=== PATIENT | male | born 1935 | race Asian ===

== ENCOUNTER → 2017-02-18 | Outpatient (CLI) | payer MEDICARE, MEDICAID ==
[~2017-02-18] MED LIST: ACET-1757 PO; AMIO400T4 PO; AMLO5TAB4 PO; FURO-93 PO; INDO25CA PO; LOSA25TA5 PO; METF500T4 PO; OMEP20CA9 PO; RIVA20TA PO; SUCR1TAB26 PO
== END | disposition home or self-care (01) ==
LOC: CFH 10:11
PROVIDERS: ATTEND Internal Medicine Cardiovascular Disease
DX: I08.3 Combined rheumatic disorders of mitral, aortic and tricuspid valves (principal); I37.1 Nonrheumatic pulmonary valve insufficiency; I71.2 Thoracic aortic aneurysm, without rupture
CPT/HCPCS: 93306

== ENCOUNTER 2017-05-11 11:13 | Inpatient (IN) | payer MEDICARE, MEDICAID ==
[~2017-05-11] VITALS: Ht 167.6 cm; Wt 75.8 kg
[2017-05-11] MEDS ORDERED: SODIUM CHLORIDE FLUSH 10ML SYR IVF ONE (12:00)
[2017-05-11 12:32] LABS: ASPARTATE AMINO TRANSFERASE 24 U/L (15-37); BLOOD UREA NITROGEN 13 mg/dL (7-18)
[2017-05-11 12:39] LABS: IS PT STATUS REG ER OR PRE ER? YES
[2017-05-11] MEDS ORDERED: SODIUM CHLORIDE FLUSH 10ML SYR IVF PRN (13:30)
[2017-05-11] MEDS ORDERED: BISACODYL 10 MG SUPP PR PRN (14:00)
[2017-05-11] MEDS ORDERED: ONDANSETRON ODT 4 MG PO PRN (14:00)
[2017-05-11] MEDS ORDERED: POLYETHYLENE GLYCOL 17 GM PACKET PO PRN (14:00)
[2017-05-11] MEDS ORDERED: ONDANSETRON 2MG/ML, 2ML IVPush PRN (14:00)
[2017-05-11] MEDS ORDERED: DOCUSATE 100 MG CAPSULE PO PRN (14:00)
[2017-05-11] MEDS ORDERED: GABA300C10 PO (14:20)
[2017-05-11] MEDS ORDERED: FEBU40TA PO (14:20)
[2017-05-11] MEDS ORDERED: GLUCAGON 1 MG IM PRN (14:30)
[2017-05-11] MEDS ORDERED: DEXTROSE 50%, 50ML SYRINGE IVPush PRN (14:30)
[2017-05-11] MEDS ORDERED: DEXTROSE 4 GM TAB.CHEW PO PRN (14:30)
[2017-05-11 15:20] VITALS: BP 160/88
[2017-05-11] MEDS: INSULIN ASPART 100 UNITS/ML, PEN SQ-INSULIN SCH ×2 (16:00→21:00)
[2017-05-11 16:33] LABS: IS PT STATUS REG ER OR PRE ER? NO
[2017-05-11] MEDS: HEPARIN 5,000 UNITS/ML, 1ML SQ SCH (17:17)
[2017-05-11 20:51] VITALS: BP 116/59
[2017-05-11] MEDS: SODIUM CHLORIDE FLUSH 3ML SYRINGE IVF SCH (21:00)
[2017-05-11] MEDS ORDERED: SODIUM CHLORIDE FLUSH 10ML SYR IVF SCH (21:00)
[2017-05-11 21:30] VITALS: BP 136/72
[2017-05-11] MEDS: LOSARTAN 50MG TABLET PO SCH (21:39)
[2017-05-11 23:57] LABS: IS PT STATUS REG ER OR PRE ER? NO
[2017-05-12] MEDS: HEPARIN 5,000 UNITS/ML, 1ML SQ SCH ×3 (00:38→17:42)
[2017-05-12 01:44] VITALS: BP 115/67
[2017-05-12 06:08] LABS: BLOOD UREA NITROGEN 14 mg/dL (7-18)
[2017-05-12 06:36] VITALS: BP 111/68
[2017-05-12] MEDS: INSULIN ASPART 100 UNITS/ML, PEN SQ-INSULIN SCH ×4 (07:00→21:00)
[2017-05-12] MEDS: LOSARTAN 50MG TABLET PO SCH ×2 (07:54→21:29)
[2017-05-12] MEDS: SODIUM CHLORIDE FLUSH 3ML SYRINGE IVF SCH ×2 (08:09→21:00)
[2017-05-12] MEDS: FUROSEMIDE 20 MG TABLET PO SCH (08:09)
[2017-05-12] MEDS: AMIODARONE 200 MG TABLET PO SCH (08:09)
[2017-05-12] MEDS ORDERED: OXYC-229 PO (08:29)
[2017-05-12] MEDS: OXYcodone/APAP 10/325MG TABLET PO PRN ×2 (08:55→15:38)
[2017-05-12 12:34] VITALS: BP 120/71
[2017-05-12] MEDS: GABAPENTIN 300 MG CAPSULE PO SCH ×2 (17:27→21:29)
[2017-05-12 18:45] VITALS: BP 150/70
[2017-05-13 01:05] VITALS: BP 147/74
[2017-05-13] MEDS: HEPARIN 5,000 UNITS/ML, 1ML SQ SCH ×2 (01:07→08:39)
[2017-05-13 05:42] LABS: BLOOD UREA NITROGEN 19 mg/dL (7-18)
[2017-05-13] MEDS: INSULIN ASPART 100 UNITS/ML, PEN SQ-INSULIN SCH ×2 (07:00→11:00)
[2017-05-13 08:03] VITALS: BP 136/67
[2017-05-13] MEDS: GABAPENTIN 300 MG CAPSULE PO SCH (08:38)
[2017-05-13] MEDS: AMIODARONE 200 MG TABLET PO SCH (08:38)
[2017-05-13] MEDS: FUROSEMIDE 20 MG TABLET PO SCH (08:38)
[2017-05-13] MEDS: LOSARTAN 50MG TABLET PO SCH (08:38)
[2017-05-13] MEDS: SODIUM CHLORIDE FLUSH 3ML SYRINGE IVF SCH (08:39)
[2017-05-13 13:45] VITALS: BP 111/63
== END 2017-05-13 16:30 | disposition home or self-care (01) | DRG 682 ==
LOC: ED 11:48 → EDIP 13:26 → 5SO 15:20 → DCLOUNGE 05-13 15:45
PROVIDERS: ADMIT Internal Medicine; ATTEND Internal Medicine
DX: I12.9 Hypertensive chronic kidney disease with stage 1 through stage 4 chronic kidney disease, or unspecified chronic kidney disease (principal); N17.0 Acute kidney failure with tubular necrosis; D68.69 Other thrombophilia; R06.09 Other forms of dyspnea; R74.8 Abnormal levels of other serum enzymes; N18.3 Chronic kidney disease, stage 3 (moderate); I48.91 Unspecified atrial fibrillation; D50.9 Iron deficiency anemia, unspecified; E11.22 Type 2 diabetes mellitus with diabetic chronic kidney disease; M54.9 Dorsalgia, unspecified; E11.41 Type 2 diabetes mellitus with diabetic mononeuropathy; I44.0 Atrioventricular block, first degree; M10.9 Gout, unspecified; Z87.891 Personal history of nicotine dependence; Z91.81 History of falling
CPT/HCPCS: 36415; 71010; 71020; 78582; 80048; 80053; 81003; 82962; 83605; 83735; 83880; 84145; 84443; 84484; 85025; 85379; 85610; 85730; 87040; 93005; 93306; 93970; 99285; J1644; A9540; A9558; C9898

== ENCOUNTER 2017-05-15 22:01 | Emergency (ER) | payer MEDICARE, MEDICAID ==
[~2017-05-15] VITALS: Ht 170.2 cm; Wt 78.0 kg
[~2017-05-15 22:01] MED LIST changes: +FEBU40TA PO; +GABA300C10 PO; +OXYC-229 PO
[2017-05-15 23:05] LABS: ASPARTATE AMINO TRANSFERASE 43 U/L (15-37); BLOOD UREA NITROGEN 21 mg/dL (7-18)
[2017-05-16 00:21] VITALS: BP 128/66
== END 2017-05-16 00:23 | disposition home or self-care (01) ==
LOC: ED 22:09
DX: J01.00 Acute maxillary sinusitis, unspecified (principal); J01.20 Acute ethmoidal sinusitis, unspecified; I10 Essential (primary) hypertension; E11.9 Type 2 diabetes mellitus without complications; I25.2 Old myocardial infarction; M10.9 Gout, unspecified; G89.29 Other chronic pain
CPT/HCPCS: 36415; 71010; 76380; 80053; 83880; 85025; 93005; 99285

== ENCOUNTER 2017-05-24 17:25 | Emergency (ER) | payer MEDICARE, MEDICAID ==
[~2017-05-24] VITALS: Ht 170.2 cm; Wt 74.0 kg
[2017-05-24] MEDS ORDERED: SODIUM CHLORIDE FLUSH 10ML SYR IVF ONE (18:00)
[2017-05-24 18:20] LABS: BLOOD UREA NITROGEN 28 mg/dL (7-18)
[2017-05-24 18:27] LABS: IS PT STATUS REG ER OR PRE ER? YES
[2017-05-24 19:37] LABS: DIFF TOTAL CELLS COUNTED 100 CELL DIFF
[2017-05-24 19:39] LABS: OVALOCYTES 1+
[2017-05-24 19:48] VITALS: BP 128/82
[2017-05-24 19:50] LABS: VERIFY COUNTS? YES
== END 2017-05-24 21:06 | disposition home or self-care (01) ==
LOC: ED 20:52
DX: J01.00 Acute maxillary sinusitis, unspecified (principal); J01.20 Acute ethmoidal sinusitis, unspecified; M10.9 Gout, unspecified; K21.9 Gastro-esophageal reflux disease without esophagitis; I10 Essential (primary) hypertension; E11.9 Type 2 diabetes mellitus without complications; N28.9 Disorder of kidney and ureter, unspecified
CPT/HCPCS: 36415; 71010; 80048; 81003; 82040; 84484; 85025; 93005; 99285

== ENCOUNTER 2017-06-02 20:38 | Inpatient (IN) | payer MEDICARE, MEDICAID ==
[~2017-06-02] VITALS: Ht 170.2 cm; Wt 75.4 kg
[2017-06-02] MEDS ORDERED: METF500T4 PO (21:06)
[2017-06-02] MEDS ORDERED: POLY17PO3 PO (21:07)
[2017-06-02 21:23] LABS: BLOOD UREA NITROGEN 23 mg/dL (7-18)
[2017-06-02 21:30] LABS: IS PT STATUS REG ER OR PRE ER? YES
[2017-06-02] MEDS ORDERED: LORazepam 2 MG/ML, 1ML IVPush ONE (21:30)
[2017-06-02] MEDS ORDERED: SODIUM CHLORIDE FLUSH 10ML SYR IVF ONE (21:30)
[2017-06-02] MEDS ORDERED: LORazepam 2 MG/ML, 1ML ONE (21:37)
[2017-06-02 21:41] LABS: DIFF TOTAL CELLS COUNTED 100 CELL DIFF
[2017-06-02 21:44] LABS: VERIFY COUNTS? YES
[2017-06-02 21:45] LABS: ANISOCYTOSIS 1+; OVALOCYTES 1+; POLYCHROMASIA 1+
[2017-06-02 21:46] LABS: MICROCYTOSIS 1+
[2017-06-02] MEDS ORDERED: ASPIRIN 81 MG TABLET CHEW ONE (22:23)
[2017-06-02] MEDS ORDERED: ASPIRIN 81 MG TABLET CHEW PO ONE (22:30)
[2017-06-03 00:30] VITALS: BP 189/86
[2017-06-03] MEDS ORDERED: NITROGLYCERIN 0.4 MG/SPRAY SL PRN (01:00)
[2017-06-03] MEDS ORDERED: TEMAZEPAM 15 MG CAPSULE PO PRN (01:00)
[2017-06-03] MEDS ORDERED: LABETALOL 5MG/ML 40ML VIAL IVPush PRN (01:00)
[2017-06-03] MEDS ORDERED: morphine SULFATE 10 MG/ML, 1ML IVPush PRN (01:00)
[2017-06-03] MEDS ORDERED: ACETAMINOPHEN 325 MG TABLET PO PRN (01:00)
[2017-06-03] MEDS ORDERED: OXYcodone/APAP 10/325MG TABLET PO PRN (01:00)
[2017-06-03] MEDS ORDERED: POLYETHYLENE GLYCOL 17 GM PACKET PO PRN (01:00)
[2017-06-03] MEDS ORDERED: ONDANSETRON 2MG/ML, 2ML IVPush PRN (01:00)
[2017-06-03] MEDS ORDERED: DOCUSATE 100 MG CAPSULE PO PRN (01:00)
[2017-06-03 01:45] VITALS: BP 128/75
[2017-06-03 02:03] LABS: IS PT STATUS REG ER OR PRE ER? NO
[2017-06-03] MEDS: HEPARIN 5,000 UNITS/ML, 1ML SQ SCH ×3 (05:04→21:33)
[2017-06-03 06:48] VITALS: BP 144/81
[2017-06-03 07:51] LABS: IS PT STATUS REG ER OR PRE ER? NO
[2017-06-03] MEDS: LOSARTAN 50MG TABLET PO SCH (08:51)
[2017-06-03] MEDS: OMEPRAZOLE 20 MG CAPSULE.DR PO SCH (08:51)
[2017-06-03] MEDS: FEBUXOSTAT 40 MG TABLET PO SCH (08:51)
[2017-06-03] MEDS: GABAPENTIN 300 MG CAPSULE PO SCH ×4 (08:51→21:33)
[2017-06-03] MEDS: AMIODARONE 200 MG TABLET PO SCH (08:52)
[2017-06-03] MEDS ORDERED: FUROSEMIDE 20 MG TABLET PO SCH (09:00)
[2017-06-03 13:28] VITALS: BP 158/76
[2017-06-03] MEDS: HYDROCHLOROTHIAZIDE 25 MG TABLET PO SCH (17:32)
[2017-06-03 20:00] VITALS: BP 142/76
[2017-06-03] MEDS: INSULIN ASPART 100 UNITS/ML, PEN SQ-INSULIN SCH (21:00)
[2017-06-04 02:00] VITALS: BP 108/65
[2017-06-04 05:13] LABS: BLOOD UREA NITROGEN 25 mg/dL (7-18)
[2017-06-04 05:35] LABS: TOTAL IRON BINDING CAPACITY 281 mcg/dL (250-450)
[2017-06-04] MEDS: HEPARIN 5,000 UNITS/ML, 1ML SQ SCH ×2 (05:59→13:13)
[2017-06-04] MEDS ORDERED: ASPIRIN 81 MG TABLET EC PO SCH (06:00)
[2017-06-04 06:40] VITALS: BP 104/59
[2017-06-04] MEDS: INSULIN ASPART 100 UNITS/ML, PEN SQ-INSULIN SCH ×3 (07:00→16:27)
[2017-06-04] MEDS ORDERED: FLUOXETINE 20 MG CAPSULE PO SCH (09:00)
[2017-06-04] MEDS: FEBUXOSTAT 40 MG TABLET PO SCH (09:15)
[2017-06-04] MEDS: OMEPRAZOLE 20 MG CAPSULE.DR PO SCH (09:15)
[2017-06-04] MEDS: HYDROCHLOROTHIAZIDE 25 MG TABLET PO SCH (09:15)
[2017-06-04] MEDS: AMIODARONE 200 MG TABLET PO SCH (09:16)
[2017-06-04] MEDS: LOSARTAN 50MG TABLET PO SCH (09:16)
[2017-06-04] MEDS: GABAPENTIN 300 MG CAPSULE PO SCH ×2 (09:16→16:26)
[2017-06-04] MEDS ORDERED: SODIUM CHLORIDE 0.9%, 500ML IVBOLUS ONE (12:00)
[2017-06-04 12:15] VITALS: BP 105/65
[2017-06-04] MEDS ORDERED: FLUO20CA8 PO (16:54)
[2017-06-04] MEDS ORDERED: ASPI-621 PO (16:54)
[2017-06-04] MEDS ORDERED: GABA300C10 PO (16:54)
[2017-06-04] MEDS ORDERED: HEPARIN 5,000 UNITS/ML, 1ML SQ SCH (21:00)
== END 2017-06-04 18:09 | disposition home or self-care (01) | DRG 683 ==
LOC: ED 20:57 → EDIP 22:13 → 5SO 23:19 → 4WST 06-03 18:45
PROVIDERS: ADMIT Internal Medicine; ATTEND Internal Medicine
DX: I12.9 Hypertensive chronic kidney disease with stage 1 through stage 4 chronic kidney disease, or unspecified chronic kidney disease (principal); D68.69 Other thrombophilia; G25.0 Essential tremor; I25.10 Atherosclerotic heart disease of native coronary artery without angina pectoris; D50.9 Iron deficiency anemia, unspecified; E11.22 Type 2 diabetes mellitus with diabetic chronic kidney disease; I48.0 Paroxysmal atrial fibrillation; N18.3 Chronic kidney disease, stage 3 (moderate); I25.2 Old myocardial infarction; K21.9 Gastro-esophageal reflux disease without esophagitis; M10.9 Gout, unspecified; M48.06 Spinal stenosis, lumbar region; G89.29 Other chronic pain; E11.40 Type 2 diabetes mellitus with diabetic neuropathy, unspecified; M54.30 Sciatica, unspecified side; W18.30XA Fall on same level, unspecified, initial encounter; Y93.89 Activity, other specified; Y92.89 Other specified places as the place of occurrence of the external cause; Y99.8 Other external cause status; Z79.899 Other long term (current) drug therapy; Z79.84 Long term (current) use of oral hypoglycemic drugs
CPT/HCPCS: 36415; 70450; 71010; 80048; 82040; 82728; 82746; 82962; 83036; 83540; 83550; 83735; 84425; 84439; 84443; 84484; 85025; 85610; 85730; 93005; J1644; J1815; J2060; J7040

== ENCOUNTER 2017-06-07 16:35 | Emergency (ER) | payer MEDICARE, MEDICAID ==
[~2017-06-07] VITALS: Ht 170.2 cm; Wt 75.0 kg
[~2017-06-07 16:35] MED LIST changes: +ASPI-621 PO; +FLUO20CA8 PO; +POLY17PO3 PO
[2017-06-07] MEDS ORDERED: SODIUM CHLORIDE FLUSH 10ML SYR IVF ONE (17:00)
[2017-06-07 17:43] LABS: BLOOD UREA NITROGEN 22 mg/dL (7-18)
[2017-06-07 17:54] LABS: IS PT STATUS REG ER OR PRE ER? YES
[2017-06-07 19:00] VITALS: BP 149/76
== END 2017-06-07 19:03 | disposition home or self-care (01) ==
LOC: ED 17:42
DX: R06.00 Dyspnea, unspecified (principal); R09.81 Nasal congestion; R42 Dizziness and giddiness; I10 Essential (primary) hypertension; E11.9 Type 2 diabetes mellitus without complications
CPT/HCPCS: 36415; 71010; 80048; 82040; 83880; 84484; 85025; 93005; 99285

== ENCOUNTER 2017-08-10 08:15 | Inpatient (IN) | payer MEDICARE, MEDICAID ==
[~2017-08-10] VITALS: Ht 167.6 cm; Wt 73.6 kg
[2017-08-10 01:19] VITALS: BP 118/74
[~2017-08-10 08:15] MED LIST changes: -OXYC-229 PO; +OXYC-307 PO; -SUCR1TAB26 PO; +SUCR1TAB33 PO
[2017-08-10] MEDS ORDERED: SODIUM CHLORIDE FLUSH 10ML SYR IVF ONE (09:30)
[2017-08-10] MEDS ORDERED: GABAPENTIN 300 MG CAPSULE PO ONE (09:30)
[2017-08-10 09:43] LABS: HEMATOCRIT 43.3 % (39.2-51.8); HEMOGLOBIN 13.6 g/dL (13.7-18.0); WHITE BLOOD COUNT 5.2 x10^3/uL (3.4-10)
[2017-08-10 09:56] LABS: BLOOD UREA NITROGEN 18 mg/dL (7-18)
[2017-08-10 10:02] LABS: ASPARTATE AMINO TRANSFERASE 28 U/L (15-37)
[2017-08-10 10:04] LABS: IS PT STATUS REG ER OR PRE ER? YES
[2017-08-10 10:05] LABS: PATH.CAST-FLAG NOT PRESENT; SPERM-FLAG NOT PRESENT; SRC-FLAG NOT PRESENT; XTAL-FLAG NOT PRESENT; YLC-FLAG NOT PRESENT
[2017-08-10] MEDS ORDERED: CETI10CA PO (10:27)
[2017-08-10] MEDS ORDERED: FLUO20TA25 PO (10:27)
[2017-08-10] MEDS ORDERED: CEFDINIR 300 MG CAPSULE PO SCH (11:00)
[2017-08-10] MEDS ORDERED: SODIUM CHLORIDE FLUSH 10ML SYR IVF PRN (11:30)
[2017-08-10] MEDS ORDERED: DEXTROSE 50%, 50ML SYRINGE IVPush PRN (13:30)
[2017-08-10] MEDS ORDERED: ONDANSETRON ODT 4 MG PO PRN (13:30)
[2017-08-10] MEDS ORDERED: GLUCAGON 1 MG IM PRN (13:30)
[2017-08-10] MEDS ORDERED: DEXTROSE 4 GM TAB.CHEW PO PRN (13:30)
[2017-08-10] MEDS ORDERED: LABETALOL 5MG/ML, 20ML IVPush PRN (13:30)
[2017-08-10] MEDS ORDERED: ONDANSETRON 2MG/ML, 2ML IVPush PRN (13:30)
[2017-08-10] MEDS ORDERED: ACETAMINOPHEN 325 MG TABLET PO PRN (13:30)
[2017-08-10] MEDS ORDERED: DOCUSATE 100 MG CAPSULE PO PRN (13:30)
[2017-08-10] MEDS ORDERED: BISACODYL 10 MG SUPP PR PRN (13:30)
[2017-08-10] MEDS ORDERED: POLYETHYLENE GLYCOL 17 GM PACKET PO PRN (13:30)
[2017-08-10 13:46] VITALS: BP 125/80
[2017-08-10 14:05] VITALS: BP 125/80
[2017-08-10] MEDS: SODIUM CHLORIDE 0.9% 1,000 ML IV SCH (14:47)
[2017-08-10] MEDS: INSULIN ASPART 100 UNITS/ML, PEN SQ-INSULIN SCH ×2 (16:00→20:22)
[2017-08-10] MEDS: HEPARIN 5,000 UNITS/ML, 1ML SQ SCH (16:03)
[2017-08-10] MEDS: GABAPENTIN 300 MG CAPSULE PO SCH ×2 (16:04→20:35)
[2017-08-10 16:09] LABS: IS PT STATUS REG ER OR PRE ER? NO
[2017-08-10] MEDS: CEFTRIAXONE PMX 1GM/50ML 50 ML IV SCH (17:51)
[2017-08-10] MEDS: SODIUM CHLORIDE FLUSH 10ML SYR IVF SCH (20:23)
[2017-08-10 20:33] VITALS: BP 102/63
[2017-08-10 22:11] LABS: IS PT STATUS REG ER OR PRE ER? NO
[2017-08-11 01:27] VITALS: BP 110/68
[2017-08-11] MEDS: ASPIRIN 81 MG TABLET EC PO SCH (05:23)
[2017-08-11] MEDS: SODIUM CHLORIDE 0.9% 1,000 ML IV SCH ×2 (05:23→16:18)
[2017-08-11] MEDS: HEPARIN 5,000 UNITS/ML, 1ML SQ SCH ×3 (05:23→21:03)
[2017-08-11 05:41] LABS: HEMATOCRIT 42.4 % (39.2-51.8); HEMOGLOBIN 13.2 g/dL (13.7-18.0)
[2017-08-11 05:54] LABS: BLOOD UREA NITROGEN 18 mg/dL (7-18)
[2017-08-11 06:35] VITALS: BP 122/71
[2017-08-11] MEDS: INSULIN ASPART 100 UNITS/ML, PEN SQ-INSULIN SCH ×4 (07:00→20:55)
[2017-08-11] MEDS: GABAPENTIN 300 MG CAPSULE PO SCH ×3 (10:21→21:03)
[2017-08-11] MEDS: FLUOXETINE 20 MG CAPSULE PO SCH (10:21)
[2017-08-11] MEDS: AMIODARONE 200 MG TABLET PO SCH (10:21)
[2017-08-11] MEDS: SODIUM CHLORIDE FLUSH 10ML SYR IVF SCH ×2 (10:22→20:56)
[2017-08-11] MEDS ORDERED: SODIUM CHLORIDE 0.9%, 500ML IVBOLUS ONE (11:30)
[2017-08-11 12:05] VITALS: BP 107/54
[2017-08-11] MEDS: TAMSULOSIN 0.4 MG CAP.ER.24H PO SCH (14:50)
[2017-08-11] MEDS: CEFTRIAXONE PMX 1GM/50ML 50 ML IV SCH (17:30)
[2017-08-11 18:46] VITALS: BP_SYST 124; BP_SYST 148; BP_DIAS 60; BP_DIAS 76
[2017-08-12 02:46] VITALS: BP 123/72
[2017-08-12] MEDS: SODIUM CHLORIDE 0.9% 1,000 ML IV SCH ×3 (03:10→22:00)
[2017-08-12 05:43] LABS: BLOOD UREA NITROGEN 18 mg/dL (7-18)
[2017-08-12] MEDS: HEPARIN 5,000 UNITS/ML, 1ML SQ SCH ×3 (06:05→23:27)
[2017-08-12] MEDS: ASPIRIN 81 MG TABLET EC PO SCH (06:06)
[2017-08-12 06:40] VITALS: BP 118/57
[2017-08-12] MEDS: SODIUM CHLORIDE FLUSH 10ML SYR IVF SCH ×2 (09:00→23:26)
[2017-08-12] MEDS: TAMSULOSIN 0.4 MG CAP.ER.24H PO SCH (09:15)
[2017-08-12] MEDS: INSULIN ASPART 100 UNITS/ML, PEN SQ-INSULIN SCH ×4 (09:15→21:00)
[2017-08-12] MEDS: GABAPENTIN 300 MG CAPSULE PO SCH ×3 (09:15→23:26)
[2017-08-12] MEDS: FLUOXETINE 20 MG CAPSULE PO SCH (09:15)
[2017-08-12] MEDS: AMIODARONE 200 MG TABLET PO SCH (09:15)
[2017-08-12] MEDS: CETIRIZINE 10 MG TABLET PO SCH (11:22)
[2017-08-12 15:49] VITALS: BP 120/56
[2017-08-12] MEDS: CEFTRIAXONE PMX 1GM/50ML 50 ML IV SCH (18:33)
[2017-08-12 20:43] VITALS: BP 145/76
[2017-08-13 01:38] VITALS: BP 135/73
[2017-08-13] MEDS: ASPIRIN 81 MG TABLET EC PO SCH (05:38)
[2017-08-13] MEDS: SODIUM CHLORIDE 0.9% 1,000 ML IV SCH (05:43)
[2017-08-13] MEDS: INSULIN ASPART 100 UNITS/ML, PEN SQ-INSULIN SCH ×2 (07:00→11:00)
[2017-08-13 08:19] VITALS: BP 149/76
[2017-08-13] MEDS: SODIUM CHLORIDE FLUSH 10ML SYR IVF SCH (08:38)
[2017-08-13] MEDS: HEPARIN 5,000 UNITS/ML, 1ML SQ SCH (08:38)
[2017-08-13] MEDS: FLUOXETINE 20 MG CAPSULE PO SCH (08:38)
[2017-08-13] MEDS: CETIRIZINE 10 MG TABLET PO SCH (08:39)
[2017-08-13] MEDS: AMIODARONE 200 MG TABLET PO SCH (08:39)
[2017-08-13] MEDS: GABAPENTIN 300 MG CAPSULE PO SCH (08:39)
[2017-08-13] MEDS: TAMSULOSIN 0.4 MG CAP.ER.24H PO SCH (08:39)
[2017-08-13] MEDS ORDERED: CIPR250T2 PO (13:09)
[2017-08-13] MEDS ORDERED: PNEUMOCOCCAL 23 VACCINE IM-VACC ONE (14:00)
== END 2017-08-13 13:25 | disposition home health service (06) | DRG 683 ==
LOC: ED 09:12 → EDIP 11:04 → 4EST 13:21 → 4WST 08-13 04:55
PROVIDERS: ADMIT Internal Medicine; ATTEND Internal Medicine
DX: I12.9 Hypertensive chronic kidney disease with stage 1 through stage 4 chronic kidney disease, or unspecified chronic kidney disease (principal); N39.0 Urinary tract infection, site not specified; N17.9 Acute kidney failure, unspecified; E87.2 Acidosis; D68.69 Other thrombophilia; E11.22 Type 2 diabetes mellitus with diabetic chronic kidney disease; E11.42 Type 2 diabetes mellitus with diabetic polyneuropathy; N18.3 Chronic kidney disease, stage 3 (moderate); J98.11 Atelectasis; N13.30 Unspecified hydronephrosis; I48.0 Paroxysmal atrial fibrillation; M10.9 Gout, unspecified; D50.9 Iron deficiency anemia, unspecified; G25.0 Essential tremor; I25.10 Atherosclerotic heart disease of native coronary artery without angina pectoris; I44.0 Atrioventricular block, first degree; K21.9 Gastro-esophageal reflux disease without esophagitis; G89.29 Other chronic pain; R74.8 Abnormal levels of other serum enzymes; R33.9 Retention of urine, unspecified; I25.2 Old myocardial infarction; Z79.84 Long term (current) use of oral hypoglycemic drugs
CPT/HCPCS: 36415; 70450; 71010; 76770; 80048; 80053; 81001; 81003; 82040; 82962; 83605; 84484; 85025; 87040; 87086; 93005; 99285; J0696; J1644; J1815; J7030; J7040

== ENCOUNTER → 2019-04-09 | Outpatient (CLI) | payer MEDICARE, MEDICAID ==
[~2019-04-09] MED LIST changes: -AMIO400T4 PO; +AMIO400T5 PO; -ASPI-621 PO; +ASPI81TA45 PO; +CETI10CA PO; +CIPR250T2 PO; +FLUO20TA25 PO; -INDO25CA PO; +INDO25CA5 PO; +LOSA25TA25 PO; -LOSA25TA5 PO; +METF500T17 PO; -METF500T4 PO; +POLY17PO29 PO; -POLY17PO3 PO
[2019-04-09 13:21] LABS: ANION GAP 7 mmol/L (5-15); CALCIUM 9.3 mg/dL (8.5-10.1); CHLORIDE 109 mmol/L (98-107)
[2019-04-09 13:23] LABS: CREATININE 1.36 mg/dL (0.7-1.3)
== END | disposition home or self-care (01) ==
LOC: CFH 09:51
PROVIDERS: ATTEND Internal Medicine Cardiovascular Disease
DX: I10 Essential (primary) hypertension (principal); E11.42 Type 2 diabetes mellitus with diabetic polyneuropathy; I48.91 Unspecified atrial fibrillation; G62.9 Polyneuropathy, unspecified; Z79.899 Other long term (current) drug therapy
CPT/HCPCS: 36415; 80048

== ENCOUNTER 2019-07-09 08:15 | Outpatient (CLI) | payer MEDICARE, MEDICAID | END 2019-07-09 23:59 | disposition home or self-care (01) | LOC: CFH 08:15 | PROVIDERS: ATTEND Nurse Practitioner Family | DX: I12.9 Hypertensive chronic kidney disease with stage 1 through stage 4 chronic kidney disease, or unspecified chronic kidney disease (principal); N18.3 Chronic kidney disease, stage 3 (moderate); Z79.899 Other long term (current) drug therapy | CPT/HCPCS: 36415; 80048 ==

== ENCOUNTER → 2019-09-24 | Outpatient (CLI) | payer MEDICARE, MEDICAID ==
[~2019-09-24] MED LIST changes: -ACET-1757 PO; +ACET-2065 PO; +INDO25CA22 PO; -INDO25CA5 PO
[2019-09-24 13:45] LABS: CHLORIDE 109 mmol/L (98-107)
[2019-09-24 14:09] LABS: ALANINE AMINOTRANSFERASE 117 U/L (12-78); ALBUMIN 3.5 g/dL (3.4-5.0); ALKALINE PHOSPHATASE 68 U/L (45-117); ANION GAP 6 mmol/L (5-15); BILIRUBIN,TOTAL 0.6 mg/dL (0.2-1.0); CALCIUM 9.2 mg/dL (8.5-10.1); T4 (THYROXINE) 10.2 mcg/dL (4.5-12.1); TOTAL PROTEIN 7.8 g/dL (6.4-8.2)
== END | disposition home or self-care (01) ==
LOC: CFH 10:13
PROVIDERS: ATTEND Nurse Practitioner Family
DX: E11.42 Type 2 diabetes mellitus with diabetic polyneuropathy (principal); E78.5 Hyperlipidemia, unspecified; Z79.899 Other long term (current) drug therapy
CPT/HCPCS: 36415; 80053; 84436; 84443; 84481

== ENCOUNTER 2020-02-04 08:35 | Outpatient (CLI) | payer MEDICARE, MEDICAID ==
[~2020-02-04 08:35] MED LIST changes: +FLUO20CA23 PO; -FLUO20CA8 PO
== END 2020-02-04 23:59 | disposition home or self-care (01) ==
LOC: CFH 08:35
PROVIDERS: ATTEND Registered Nurse
DX: I77.810 Thoracic aortic ectasia (principal); I51.7 Cardiomegaly; J98.4 Other disorders of lung; M47.814 Spondylosis without myelopathy or radiculopathy, thoracic region; I70.0 Atherosclerosis of aorta; Z79.899 Other long term (current) drug therapy
CPT/HCPCS: 71250